=== PATIENT | male | born 1975 | race Hispanic/Latino ===

== ENCOUNTER → 2020-11-20 14:33 | Outpatient (CLI) | payer OTHER, SELFPAY ==
--- NOTE | ~2020-11-20 | XR_ITS ---
XR knee LT 3V 11/20/2020 14:56 INDICATION: Left knee pain PROCEDURE: 3 views left knee COMPARISON: No prior studies for comparison. FINDINGS: Fracture, dislocation or subluxation is not identified. No significant joint effusion. The soft tissues appear within normal limits. No foreign bodies are identified. IMPRESSION: 1: NO ACUTE BONE OR JOINT ABNORMALITY IDENTIFIED. Reviewed, dictated and finalized at location A. MING FREIGHT CLERK
== END ==
PROVIDERS: PCP Internal Medicine; Visit Provider Nurse Practitioner
DX: M25.562 Pain in left knee (principal)
CPT/HCPCS: 73562

== ENCOUNTER → 2020-11-26 07:06 | Outpatient (CLI) | payer OTHER, SELFPAY ==
--- NOTE | ~2020-11-26 | MR_ITS ---
EXAMINATION: MR knee LT wo con DATE: 11/26/2020 07:59 INDICATION: Left knee pain. TECHNIQUE: Magnetic resonance imaging (MRI) of the left knee was performed without intravenous contra st. Sequences included axial PD-weighted FS FSE, coronal PD-weighted FSE and PD-weighted FS FSE, sagi ttal PD-weighted FSE, and sagittal T2-weighted FS FSE. COMPARISON: Left knee radiographs 11/20/2020 FINDINGS: Medial compartment: Medial meniscus is normal. There is cartilage surface irregularity of femoral condyle and tibial cond yle. Lateral compartment: Lateral meniscus is normal. There is cartilage surface irregularity of tibial condyle. Femoral cartil age is normal. Patellofemoral compartment: There is cartilage surface irregularity of patellar medial facet. Trochlear cartilage is normal. Ligaments and tendons: Anterior and posterior cruciate ligaments are normal. There are changes of prior sprain of medial col lateral ligament characterized by increased signal proximally. Lateral collateral ligament complex is intact. There are complete tears of vastus medialis, vastus intermedius, and rectus femoris tendons. There is a partial tear of vastus lateralis tendon. There is mild patellar tendinopathy. Fluid: There is a moderate-sized knee joint effusion. There is trace fluid in a Joyce's cyst. There is subcu taneous edema in the anterior knee. There is hematoma at the site of the quadriceps tendon tear. Osseous/other: There is bone marrow edema in the lateral aspect of patella, consistent with stress reaction. IMPRESSION: 1. Quadriceps tendon tear including complete tears of vastus medialis, vastus intermedius, and rectus femoris tendons and partial tear of the vastus lateralis tendon. 2. Mild tricompartmental chondrosis. 3. Moderate-sized knee joint effusion. Reviewed, dictated and finalized at location A. ING ANALYST IMPRESSION: 1. Quadriceps tendon tear including complete tears of vastus medialis, vastus i ntermedius, and rectus femoris tendons and partial tear of the vastus lateralis tendon. 2. Mild tricompartmental chondrosis. 3. Moderate-sized knee joint effusion.
== END ==
PROVIDERS: PCP Internal Medicine; Visit Provider Nurse Practitioner
DX: M25.462 Effusion, left knee (principal)
CPT/HCPCS: 73721

== ENCOUNTER 2020-11-27 00:39 | Outpatient (CLI) | payer OTHER, SELFPAY ==
[2020-11-27 18:46] LABS: SARS-CoV-2 RNA PCR Negative
== END 2020-11-27 00:40 | disposition home or self-care (01) ==
LOC: ANHCOVIDDT 00:40
PROVIDERS: PCP Internal Medicine; Visit Provider Orthopaedic Surgery
DX: Z01.812 Encounter for preprocedural laboratory examination (principal); Z20.822 Contact with and (suspected) exposure to COVID-19
CPT/HCPCS: C9803; U0003; U0005

== ENCOUNTER 2020-11-30 02:43 | Day surgery (SDC) | payer OTHER, SELFPAY ==
[2020-11-26 13:59] VITALS: BMI 35.4
[2020-11-30] VITALS (9 sets, daily range): BP systolic 122–141; BP diastolic 74–89; PULSE 75–100; RESP 14–24; TEMP 36.3–36.4; O2SAT 96–100
--- NOTE | 2020-11-30 07:14 | WPDANESEPPF ---
Anes - Initial Pre Proc Eval Procedure: Operation Date: 11/30/20 08:30 Proposed Procedures p Left Quadriceps Tendon Repair - Michael Smith MD Date/Time: 11/30/20 07:14 Surgeon: Michael Smith MD Pre Op Diagnosis: Left Quadriceps Tendon Tear Patient Data Age: 45 Gender: M Height: 1.78 m Weight: 111.8 kg Last Vital Signs Temp 36.4 C 11/30/20 07:07 Pulse 98 11/30/20 07:07 Resp 16 11/30/20 07:07 BP 141/88 H 11/30/20 07:07 Pulse Ox 98 11/30/20 07:07 Allergies Allergy/AdvReac Type Severity Reaction Status Date / Time No Known Allergies Allergy Mild Verified 11/26/20 13:58 Home Medications Medication Instructions Recorded Confirmed Type testosterone enanthate 200 mg/mL 250 mg IM .COMPLEX ml 03/30/20 11/26/20 History intramuscular oil dextroamphetamine-amphetamine 20 20 mg PO TID #90 tablet 11/09/20 11/27/20 Rx mg tablet ibuprofen 1,000 mg PO TID PRN 11/26/20 11/27/20 History Patient hx anesthesia problems: none Family hx anesthesia problems: none [facility] Past Medical History Medical History (Updated 11/27/20 @ 10:04 by ROSANNE Hayes) Tachycardia Family History Family History Mother Patient's mother is in good health Father Patient's father is in good health Sibling Patient's sister is in good health Patient's brother is in good health Social History Social History Smoking status: Current some day smoker Tobacco type: cigars Additional smoking assessment comments: SMOKES < 1 CIGAR /WEEK X 4 YEARS Alcohol intake: never Alcohol use details: DRANK SOCIALLY IN PAST Substance use: never Living arrangements: with family Additional living arrangements comments: Additional occupation/education comments: [employer] Gender identity (if verbalized by the patient): Male Spiritual care concerns: No Anes - Eval Final PreProcedure Day of Procedure 11/30/20 07:14 Patient weight: obese Heart: regular rate and rhythm Lungs: clear to auscultation and normal air movement Airway: Mallampati scale class II Neurological: alert and oriented Last oral intake: >/= 8 hours ASA classification: III Emergent: no Anesthetic plan: proceed Anesthesia type and monitoring: general LMA and ETT Informed Consent: The patient's anesthetic plan and its attendant risks and benefits were discussed with the patient/family/POA. Questions were solicited and answers provided to the satisfaction of the patient/family/POA.
--- NOTE | 2020-11-30 07:18 | WPDHPUPDATE1 ---
History and Physical Update Update Date/Time: 11/30/20 07:18 History and Physical has been reviewed, including an updated exam of the patient. There are NO changes in the patient's condition. Risks, benefits, and alternatives have been discussed and questions answered. Patient agrees to proceed with procedure.
[2020-11-30] MEDS: ACETAMINOPHEN 500 MG TABLET 1000 MG PO (07:29)
[2020-11-30] MEDS: LACTATED RINGERS 1,000 ML 30 ML IV CONT ×2 (07:36→10:40)
[2020-11-30] MEDS: KETOROLAC 15 MG/ML VIAL (*BKC) IV PUSH (07:37)
[2020-11-30] MEDS: ceFAZolin 2 GM/D5W 50 ML 2 GM/50 ML BAG IVPB (07:57)
[2020-11-30] MEDS: BUPIVACAINE HCL 0.5% PF 30 ML VIAL 20 ML INFILTRATE (08:27)
--- NOTE | 2020-11-30 10:50 | P.OP_ITS ---
Procedure Note - Detailed Date of procedure: 11/30/20 Pre-op diagnosis: Left Quadriceps Tendon Tear Post-op diagnosis: same Procedure performed: Repair quadriceps tendon rupture. Description of procedure: The tear was in the intrasubstance of the tendon. Soft tissue repair tendon to tendon was indicated. Multiple FiberWire and Ethibond sutures were used with locking running sutures. The repair demonstrated significant tension between 45 and 60?. 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 Surgeon: Michael Smith MD Pan Reclaim Processor: Colleen Powers PA-C Estimated blood loss (mL): 50 Complications: No immediate complications Condition: stable Disposition: PACU Findings: Physician medical assistant instructor, Colleen Powers PA-C, required for surgery; including patient positioning, draping, tissue retraction, maintaining instrument position, wound closure, and dressing placement. Preoperative antibiotics were given. The patient was prepped and draped in the usual sterile fashion. A tourniquet was applied to the thigh but not inflated. A longitudinal incision was centered over the distal quadriceps and patella. The rupture was confirmed to be in the intrasubstance of the tendon. Significant tendinous material was left on the proximal patella. Tendon to bone repair was not advisable due to the required shortening. Tendon to tendon repair was accomplished with multiple FiberWire sutures were an in through the central tendon proximally and into the tendon stump distally. The central part of the tendon was repaired 1st this was a quite anatomic in appearance. Then the medial aspect of the tendon was repaired as it was somewhat more proximally torn. The split into the vastus medialis quite low was repaired with interr upted 0 Ethibond suture. The vastus lateralis was similarly repaired with#5 Ethibond and 0 Ethibond. The overlying retinaculum and fascial layers were repaired and reapproximated as able. The joint was not violated and the capsule was intact superiorly. Copious irrigation was used throughout the procedure. The subcutaneous tissues were closed with 2-0 Vicryl, 0 Quill, and 2-0 Quill. Steri-Strips were placed on the skin. A knee immobilizer was placed. Sterile bulky dressing with Dawson bandage placed 1st. Tension was found at 45? with knee flexion.
[2020-11-30] MEDS: fentaNYL CITRATE INJ (*CRX) 100 MCG/2 ML VIAL 25 MCG IV PUSH ×2 (11:05→11:11)
--- NOTE | 2020-11-30 11:37 | SUR.PHASEI ---
PT AWAKE AND ALERT. STATES PAIN MILD. READY TO SIT IN RECLINER.
[2020-11-30] MEDS: oxyCODONE HCL (*CRX) 5 MG TAB IR PO (12:25)
== END 2020-11-30 13:17 | disposition home or self-care (01) ==
PROVIDERS: PCP Internal Medicine; Visit Provider Orthopaedic Surgery
PROC: (CPT 27385; principal; 2020-11-30 08:30)
DX: S76.112A Strain of left quadriceps muscle, fascia and tendon, initial encounter (principal); R00.0 Tachycardia, unspecified; F17.210 Nicotine dependence, cigarettes, uncomplicated; E66.9 Obesity, unspecified; Z68.35 Body mass index [BMI] 35.0-35.9, adult
CPT/HCPCS: 27385; A9270; C9803; J0330; J0690; J1885; J2250; J2405; J2704; J3010; J7120; L1830; U0003; U0005

== ENCOUNTER 2023-12-27 08:03 | Emergency (ER) | payer OTHER, SELFPAY ==
--- NOTE | ~2023-12-27 | CT_ITS ---
EXAMINATION: CT femur LT w con DATE: 12/27/2023 09:35 INDICATION: Left lower limb injury. TECHNIQUE: Computed tomography (CT) of the left femur was performed with 100 mL Omnipaque 350 intrave nous contrast. Automated exposure control and iterative reconstruction technique were employed. The d ose-length product was 1231.57 mGy-cm. COMPARISON: Left knee radiographs 11/20/2020, knee MRI 11/26/2020 FINDINGS: Bone alignment is normal. No fracture. There is severe lower lumbar spondylosis. There is m ild osteoarthritis of left hip joint and left knee joint. There are changes of old distal quadriceps tendon tear status post healing or repair. There is heterotopic ossification in the distal quadriceps tendon. There is a small knee joint effusion. There is a small subcutaneous hematoma in posterolater al left thigh. IMPRESSION: 1. No acute fracture. 2. Old distal quadriceps tendon tear status post healing or repair. 3. Mild polyarticular osteoarthritis. 4. Mild knee joint osteoarthritis. 5. Small subcutaneous hematoma in posterolateral left thigh. Reviewed, dictated and finalized at location A. UTER NETWORKER
--- NOTE | ~2023-12-27 | CT_ITS ---
EXAMINATION: CT brain wo con DATE: 12/27/2023 09:31 INDICATION: Head injury. TECHNIQUE: Computed tomography (CT) of the head was performed without intravenous contrast. The mA wa s adjusted according to patient size. Iterative reconstruction technique was employed. The dose-lengt h product was 681.00 mGy-cm. COMPARISON: None FINDINGS: There is no intracranial hemorrhage, acute infarction, or abnormal intracranial mass lesion . The ventricles are normal in size. There is mucosal thickening in the paranasal sinuses. There are fractures of the nasal bones and nasal processes of maxilla. The mastoid air cells are normal. The or bits are normal. IMPRESSION: 1. Normal brain. 2. Fractures of the nasal bones and nasal processes of maxilla. Reviewed, dictated and finalized at location A. IN HOUSEKEEPER NANNY
--- NOTE | ~2023-12-27 | CT_ITS ---
EXAMINATION: CT facial & cervical spine wo DATE: 12/27/2023 09:32 INDICATION: Trauma TECHNIQUE: Computed tomography (CT) of the facial bones and maxillofacial region and cervical spine w as performed without intravenous contrast. Automated exposure control and iterative reconstruction te chnique were employed. Exam dose: 553.01 mGy-cm total exam DLP. COMPARISON: None. FINDINGS: Bilateral nasal plate fractures. The frontozygomatic sutures, orbital rims and sidhu, zygomatic arches, pterygoid plates and remainder of the facial bones are intact, without fracture. No mandibular fracture or temporomandibular joint dislocation. Mild periapical lucency at the most posterior right mandibular molar, likely a small periapical absce ss. There is minimal mucoperiosteal thickening of the frontal sinuses and prominent patchy soft tissue th ickening of the ethmoid air cells. There is moderate nodular mucoperiosteal thickening of the lower r ight maxillary sinus primarily and mild mucoperiosteal thickening involving primarily the lower left maxillary sinus. There is mild mucosal periosteal thickening of the sphenoid sinuses. The mastoid air cells are well pneumatized and clear. There is straightening of the cervical spine which may be due to positioning or muscle spasm. Moderate degenerative disc disease at C5-6 and severe degenerative disc disease at C6-7. Prominent un covertebral joint spurring at C6-7 bilaterally. No fracture or dislocation or locked facet or prevertebral soft tissue swelling. C1 and C2 are normal ly aligned and the odontoid process is intact. There is degenerative change at the left C2-3 apophyse al joint primarily. IMPRESSION: Bilateral nasal plate fractures; no other facial fracture Mild paranasal sinus disease Straightening of the cervical spine which may be due to muscle spasm Moderate cervical spondylosis; no fracture or dislocation or locked facet Reviewed, dictated and finalized at Location A. Reviewed, dictated and finalized at location B. ATION PROGRAM SPECIALIST
[2023-12-27 08:12] VITALS: BP 152/94; PULSE 113; RESP 20; TEMP 36.8; O2SAT 97
[2023-12-27 08:25] VITALS: BP 150/102; PULSE 114; RESP 18; O2SAT 98
[2023-12-27] MEDS: SODIUM CHLORIDE 0.9% IV 1,000 ML 999 ML IV CONT (08:42)
[2023-12-27 08:48] LABS: Basophils Absolute Auto 0.1 K/mm3 (0.0-0.1); Basophils Percent Auto 1.6 % (0.2-1.2); Eosinophils Absolute Auto 0.4 K/mm3 (0-0.3); Hematocrit 55.6 % (42.0-52.0); Hemoglobin 17.5 g/dL (14.0-18.0); Immature Granulocyte Absolute 0.02 K/mm3 (0.00-0.031); Immature Granulocyte Percent A 0.3 % (0-0.5); Lymphocytes Absolute Auto 1.28 K/mm3 (0.9-3.2); Lymphocytes Percent Auto 20.8 % (18.3-44.2); Mean Corpuscular HGB Conc 31.5 g/dl (32-36); Mean Corpuscular Hemoglobin 27.3 pg (26-34); Mean Corpuscular Volume 86.9 fl (80-100); Mean Platelet Volume 9.5 fl (7.4-10.4); Monocytes Absolute Auto 0.6 K/mm3 (0.1-0.6); Monocytes Percent Auto 10.4 % (2.6-8.5); Neutrophils Absolute Auto 3.7 K/mm3 (1.3-6.7); Neutrophils Percent Auto 60.9 % (45.5-73.1); Platelet Count Result 290 k/mm3 (150-375); White Blood Count 6.1 K/mm3 (4.5-10.0)
[2023-12-27 08:58] LABS: Alanine Aminotransferase 51 U/L (6-50); Albumin Level 4.3 g/dL (3.5-5.1); Alkaline Phosphatase 79 U/L (38-126); Anion Gap 4 mmol/L (8-16); Aspartate Amino Transferase 46 U/L (17-59); Bilirubin,Total 0.6 mg/dL (0.2-1.3); Blood Urea Nitrogen 19 mg/dL (9-20); Calcium 8.9 mg/dL (8.4-10.2); Carbon Dioxide 28 mmol/L (22-30); Chloride 106 mmol/L (98-107); Estimated CRCL calculation 86 ml/min; Estimated Glomerular Filt Rate > 60; Glucose 101 mg/dL (65-110); Lipase 114 U/L (23-300); Potassium 4.1 mmol/L (3.4-5.0); Sodium 138 mmol/L (137-145)
[2023-12-27 09:05] LABS: INR 0.9; Prothrombin Time 12.6 Seconds (11.1-14.7)
[2023-12-27 09:06] LABS: Partial Thromboplastin Time 25.5 SECONDS (22.3-36.8)
[2023-12-27 09:56] VITALS: BP 159/94; PULSE 106; RESP 20; O2SAT 99
--- NOTE | 2023-12-27 10:32 | PC.NURSE ---
C Collar removed from pt per EDP Dr Zia MOCTEZUMA following negative imaging. Dawson wrap applied to left upper thigh per RHIANNA EDP Dr Lizarraga. Ice pack given, elevated limp. Distal pulse WNL.
--- NOTE | 2023-12-27 11:12 | PC.NURSE ---
assumed care of pt. pt resting on stretcher. ice pack placed to left hip/thigh for comfort. pt updated that we are awaiting edp to review results. no distress, no concerns at this time
--- NOTE | 2023-12-27 12:24 | ED.GENADULT ---
HPI - General Adult General Chief complaint: Fall Stated complaint: facial injury Time Seen by Provider: 12/27/23 08:08 History of Present Illness HPI narrative: Patient is a 48-year-old male who presents the ER status post falling from a ladder 12 ft up. He got his left leg caught in a wrong on his way down. He then struck his head on the ground. He has pain to his nose in laceration to the right infraorbital area. Patient's tetanus shot is up-to-date. He did not lose consciousness. He was able to ambulate in here. He has some pain to the left thigh and some swelling. He is concerned as he has had a ruptured quad tendon in the past. Patient is on no blood thinners. Related Data Home Medications Medication Instructions Recorded Confirmed testosterone enanthate 200 mg/mL 250 mg IM .COMPLEX 03/30/20 11/03/23 intramuscular oil Allergies Allergy/AdvReac Type Severity Reaction Status Date / Time No Known Allergies Allergy Mild Verified 12/27/23 08:26 Review of Systems Review of Systems: All systems reviewed & are unremarkable except as noted in HPI and below Constitutional: Constitutional: Reports no additional constitutional complaints Eyes: Eyes: Reports no additional eye complaints ENT: Denies dizziness, Denies nasal congestion and Denies sore throat Comments: Nasal pain Cardiovascular: Cardiovascular: Reports no additional cardiovascular complaints Respiratory: Respiratory: Reports no additional respiratory complaints Gastrointestinal: Gastrointestinal: Reports no additional gastrointestinal complaints Genitourinary: Genitourinary: Reports no additional male genitourinary complaints [facility] Past Medical History Medical History Attention deficit hyperactivity disorder, predominantly inattentive type Dyslipidemia Knee pain, left Quadriceps tendon rupture Tachycardia Testicular hypofunction Surgical History Surgical History History of surgery (~11/30/19) quadriceps tendon repair Lt Family History Family History Mother Patient's mother is in good health Father Patient's father is in good health Sibling Patient's sister is in good health Patient's brother is in good health Social History Social History Smoking status: Never smoker Second hand tobacco smoke exposure: No Alcohol intake: current Alcohol use details: occasionally Substance use: never Substance use type: does not use Living arrangements: with family Additional living arrangements comments: Occupation/Education: occupation Additional occupation/education comments: [employer] Gender identity (if verbalized by the patient): Male Sexual Orientation (if Verbalized by the Patient): Straight or Heterosexual Spiritual care concerns: No Exam Narrative: GENERAL: Well-appearing, well-nourished, and in no acute distress. HEAD: Normocephalic, atraumatic. EYES: PERRL and EOMI. ENT: Mucous membranes moist. swelling bridge of the nose with tenderness. Infraorbital region with a 1 cm flap laceration. NECK: Supple. No midline tenderness of the C-spine. CHEST: Clear to auscultation. No respiratory distress. No chest wall bruising. No crepitus palpated. HEART: Regular rate and rhythm. Normal peripheral pulses. ABDOMEN: Soft, nontender, nondistended. No abdominal wall bruising. EXTREMITIES: Normal range of motion. No edema. Swelling of the left quad laterally just proximal to the knee without fluctuance or bruising. SKIN: Warm, dry, no rash. Patient fully exposed and no obvious bruises or lacerations outside of the laceration to the right infraorbital region. NEURO: No focal deficits. Alert and oriented x3. PSYCH: Normal mood and affect. Course Course Emergency Course: Mckayla
[2023-12-27 12:53] VITALS: BP 128/86; PULSE 86; RESP 14; O2SAT 99
== END 2023-12-27 12:54 | disposition home or self-care (01) ==
PROVIDERS: Emergency Provider Emergency Medicine; PCP Family Medicine
DX: S01.21XA Laceration without foreign body of nose, initial encounter (principal); S02.2XXA Fracture of nasal bones, initial encounter for closed fracture; S70.12XA Contusion of left thigh, initial encounter; W11.XXXA Fall on and from ladder, initial encounter; M19.90 Unspecified osteoarthritis, unspecified site
CPT/HCPCS: 12011; 36415; 70450; 70486; 72125; 73701; 80053; 83690; 85025; 85610; 85730; 96360; 99284; J2270; J7030; Q9967

== ENCOUNTER 2024-01-04 11:44 | Emergency (ER) | payer OTHER, SELFPAY ==
[2024-01-04 11:47] VITALS: BP 145/80; PULSE 106; RESP 20; TEMP 36.5; O2SAT 99
--- NOTE | 2024-01-04 12:20 | ED.GENADULT ---
[facility] - General Adult General Chief complaint: Extremity Problem,Nontraumatic Stated complaint: swelling to left thigh Time Seen by Provider: 01/04/24 11:57 Source: patient Mode of arrival: ambulatory Limitations: no limitations History of Present Illness HPI narrative: This is a 48-year-old male who presents to the ED with chief complaint of left lateral thigh pain for the past several days. Patient was seen here about a week ago for traumatic injury in which he fell off of a 12 ft ladder. His workup was positive for a open nasal bone fracture as well as a small left posterolateral thigh hematoma. Patient reports that since the nose has been healing he has become more aware of the pain in his left thigh and wanted to get it checked out. Reports a little bit of warmth, continued bruising and pain but does not feel that the pain is worsened or he has any worsening swelling. States he has not been using his ice or ibuprofen either. Related Data Home Medications Medication Instructions Recorded Confirmed testosterone enanthate 200 mg/mL 250 mg IM .COMPLEX 03/30/20 01/01/24 intramuscular oil Allergies Allergy/AdvReac Type Severity Reaction Status Date / Time No Known Allergies Allergy Mild Verified 01/04/24 11:45 Review of Systems Review of Systems: All systems as dictated in [facility] Past Medical History Medical History Attention deficit hyperactivity disorder, predominantly inattentive type Dyslipidemia Knee pain, left Quadriceps tendon rupture Tachycardia Testicular hypofunction Surgical History Surgical History History of surgery (~11/30/19) quadriceps tendon repair Lt Family History Family History Mother Patient's mother is in good health Father Patient's father is in good health Sibling Patient's sister is in good health Patient's brother is in good health Social History Social History Smoking status: Never smoker Second hand tobacco smoke exposure: No Alcohol intake: current Alcohol use details: occasionally Substance use: never Substance use type: does not use Living arrangements: with family Additional living arrangements comments: Occupation/Education: occupation Additional occupation/education comments: [employer] Gender identity (if verbalized by the patient): Male Sexual Orientation (if Verbalized by the Patient): Straight or Heterosexual Spiritual care concerns: No Exam Narrative: GENERAL: Well-appearing, well-nourished, and in no acute distress. HEAD: Normocephalic, atraumatic. EYES: PERRLA and EOMI. ENT: Nares clear, no rhinorrhea or epistaxis. Mucous membranes moist. Oropharynx without tonsillar hypertrophy exudate or other lesions. NECK: Supple. No adenopathy or masses. CHEST: No respiratory distress. Clear to auscultation. No wheezes rales or rhonchi HEART: Regular rate and rhythm. No murmur heard. Normal peripheral pulses. ABDOMEN: Soft, nontender, nondistended, normal active bowel sounds. MSK: Ambulatory without difficulty. Left lower extremity with mild tenderness to the lateral thigh but neurovascularly intact distally. No calf edema. No erythema Right lower extremity benign Normal range of motion. No edema. SKIN: Warm, dry, no rash. Significant ecchymosis to the lateral left thigh. Minimal warmth. No erythema NEURO: Alert and oriented x3. No focal deficits. PSYCH: Normal mood and affect. Course Vital Signs Vital signs: Vital Signs Temperature 97.7 F 01/04/24 11:47 Pulse Rate 106 H 01/04/24 11:47 Respiratory Rate 20 01/04/24 11:47 Blood Pressure 145/80 H 01/04/24 11:47 Pulse Oximetry 99 01/04/24 11:47 Oxygen Delivery Room Air 01/04/24 11:47 Temperature 97.7 F
[2024-01-04 13:04] VITALS: BP 132/95; PULSE 96; RESP 16; TEMP 36.6; O2SAT 98
== END 2024-01-04 13:06 | disposition home or self-care (01) ==
PROVIDERS: Emergency Provider Physician Assistant; PCP Family Medicine
DX: M79.652 Pain in left thigh (principal); E78.5 Hyperlipidemia, unspecified; E29.1 Testicular hypofunction; F90.0 Attention-deficit hyperactivity disorder, predominantly inattentive type
CPT/HCPCS: 99281

== ENCOUNTER 2024-03-31 15:24 | Emergency (ER) | payer OTHER, SELFPAY ==
[2024-03-31 15:41] VITALS: BP 134/82; PULSE 95; RESP 16; TEMP 37.1; O2SAT 98
--- NOTE | 2024-03-31 16:30 | ED.URI ---
HPI - URI/Sore Throat General Chief Complaint: Upper Respiratory Infection Stated Complaint: feeling sluggish,chest congestion Time Seen by Provider: 03/31/24 16:30 Source: patient Mode of arrival: ambulatory Limitations: no limitations History of Present Illness HPI Narrative: 48-year-old male presents with complaint of chest congestion, coughing, fatigue, body aches for 2-3 days. Afebrile. No shortness of breath. Reports chest pain with coughing. Not taking any [id number] medications to treat his symptoms. States that he has a sore throat only in the mornings. Patient's son diagnosed with strep throat 2 days ago. All systems reviewed and negative except as noted above. Related Data Allergies Allergy/AdvReac Type Severity Reaction Status Date / Time No Known Allergies Allergy Mild Verified 03/31/24 15:38 Review of Systems Review of Systems: CONSTITUTIONAL: Denies fever, chills, or sweats. EYES: Denies visual changes, redness, or discharge. ENT: Denies rhinorrhea, congestion. Reports sore throat. Denies otalgia. CARDIOVASCULAR: Denies chest pain, palpitations, or edema. RESPIRATORY: Reports cough, chest congestion, chest pain with coughing. Denies dyspnea. GASTROINTESTINAL: Denies abdominal pain, nausea, vomiting, or diarrhea. GENITOURINARY: Denies dysuria or hematuria. SKIN: Denies rash or itching. MUSCULOSKELETAL: Denies back pain, joint pain, or myalgia. NEUROLOGIC: Denies headache, numbness, or weakness. PSYCHIATRIC: Denies anxiety or depression. All other systems reviewed are negative, except as documented in HPI. [facility] Past Medical History Medical History Attention deficit hyperactivity disorder, predominantly inattentive type Dyslipidemia Knee pain, left Quadriceps tendon rupture Tachycardia Testicular hypofunction Surgical History Surgical History History of surgery (~11/30/19) quadriceps tendon repair Lt Family History Family History Mother Patient's mother is in good health Father Patient's father is in good health Sibling Patient's sister is in good health Patient's brother is in good health Social History Social History Smoking status: Never smoker Second hand tobacco smoke exposure: No Alcohol intake: current Alcohol use details: occasionally Substance use: never Substance use type: does not use Living arrangements: with family Additional living arrangements comments: Occupation/Education: occupation Additional occupation/education comments: [employer] Gender identity (if verbalized by the patient): Male Sexual Orientation (if Verbalized by the Patient): Straight or Heterosexual Spiritual care concerns: No Comments At time of signature, agree with nursing past medical, surgical, social and family history. There is no relevant family history pertinent to the presenting complaint. Exam Narrative: GENERAL: This is a well-nourished, well-developed patient, in no apparent distress. HEAD: normocephalic, atraumatic. EYES: PERRL. Sclera clear/white. Vision is grossly intact. EARS: External ears normal, auditory canals clear and without drainage, TMs normal without perforation. Hearing grossly intact. NOSE: External nose normal with Clear nasal drainage, mild erythema to nares without swelling. THROAT: Mucous membranes moist, Mild erythema and swelling with postnasal drainage. No exudates. NECK: Neck supple, non-tender without lymphadenopathy, masses or thyromegaly. CARDIOVASCULAR: Regular rate and rhythm without murmurs, gallops, or rubs. RESPIRATORY: Clear to auscultation. Breath sounds equal bilaterally. No wheezes, rales, or rhonchi. SKIN: warm, Dry, intact with no suspicious lesions or rash, good texture and
== END 2024-03-31 16:30 | disposition home or self-care (01) ==
PROVIDERS: Emergency Provider Nurse Practitioner Family; PCP Family Medicine
DX: J06.9 Acute upper respiratory infection, unspecified (principal); R05.9 Cough, unspecified; Z20.818 Contact with and (suspected) exposure to other bacterial communicable diseases; Z20.822 Contact with and (suspected) exposure to COVID-19; E78.5 Hyperlipidemia, unspecified; F90.9 Attention-deficit hyperactivity disorder, unspecified type
CPT/HCPCS: 87426; 87804; 99213; G0463

== ENCOUNTER 2024-05-27 23:07 | Emergency (ER) | payer OTHER, SELFPAY ==
[2024-05-27 23:15] VITALS: BP 85/55; PULSE 116; RESP 16; TEMP 36.6; O2SAT 99
[2024-05-27 23:16] VITALS: BP 86/43
[2024-05-27 23:20] VITALS: BP 91/42
[2024-05-27 23:28] VITALS: BP 98/52
[2024-05-27 23:34] LABS: Basophils Absolute Auto 0.2 K/mm3 (0.0-0.1); Basophils Percent Auto 0.7 % (0.2-1.2); Eosinophils Percent Auto 0.1 % (0-4.4); Hematocrit 47.2 % (42.0-52.0); Hemoglobin 15.3 g/dL (14.0-18.0); Immature Granulocyte Absolute 0.13 K/mm3 (0.00-0.031); Immature Granulocyte Percent A 0.6 % (0-0.5); Lymphocytes Absolute Auto 0.42 K/mm3 (0.9-3.2); Lymphocytes Percent Auto 1.8 % (18.3-44.2); Mean Corpuscular HGB Conc 32.4 g/dl (32-36); Mean Corpuscular Hemoglobin 27.3 pg (26-34); Mean Corpuscular Volume 84.1 fl (80-100); Monocytes Percent Auto 4.2 % (2.6-8.5); Neutrophils Absolute Auto 21.3 K/mm3 (1.3-6.7); Neutrophils Percent Auto 92.6 % (45.5-73.1); Platelet Count Result 206 k/mm3 (150-375); Red Blood Count 5.61 M/mm3 (4.6-6.20); Red Cell Distribution Width 15.9 % (11.5-14.5)
[2024-05-27 23:45] LABS: Alanine Aminotransferase 65 U/L (6-50); Albumin Level 4.1 g/dL (3.5-5.1); Alkaline Phosphatase 68 U/L (38-126); Anion Gap 10 mmol/L (4-12); Aspartate Amino Transferase 52 U/L (17-59); Bilirubin,Total 1.1 mg/dL (0.2-1.3); Blood Urea Nitrogen 30 mg/dL (9-20); Calcium 7.8 mg/dL (8.4-10.2); Carbon Dioxide 24 mmol/L (22-30); Chloride 99 mmol/L (98-107); Estimated CRCL calculation 59 ml/min; Estimated Glomerular Filt Rate 41; Glucose 96 mg/dL (65-110); Potassium 4.5 mmol/L (3.4-5.0); Sodium 133 mmol/L (137-145)
--- NOTE | 2024-05-28 01:09 | PC.NURSE ---
Patient ambulates to the triage desk and states he is going to leave because he has an appointment with his physician in eight hours. Patient educated on possible outcomes including deterioration in condition/; verbalizes understanding. Patient's IV removed and patient ambulates out of the waiting room in no apparent distress.
== END 2024-05-28 01:09 | disposition left against medical advice (07) ==
PROVIDERS: Emergency Provider Emergency Medicine; PCP Family Medicine
DX: M54.50 Low back pain, unspecified (principal)
CPT/HCPCS: 36415; 80053; 85025; 99199

== ENCOUNTER 2025-02-05 19:03 | Emergency (ER) | payer OTHER, SELFPAY ==
--- NOTE | ~2025-02-05 | CT_ITS ---
CT abdomen pelvis w con Ordering provider: Azeb Nunez History: 49 years Male with . epigstric, RLQ and RUQ abd pain . Comparison: December 27, 2023 Technique: CT abdomen and pelvis with IV and without oral contrast. Automated exposure control and it erative reconstruction technique were employed. The dose-length product was 1293.35 mGy-cm. 100 mL Om nipaque 350 was given IV. Findings: VISUALIZED LOWER CHEST: Slight thickening of the oblique fissure on the right side most likely due to minimal fluid. UPPER ABDOMINAL ORGANS: Liver: Normal. Gallbladder: Contracted. Spleen: Normal. Stomach/duodenum: Normal. Pancreas: Normal. Adrenals: Normal. Kidneys: Normal. PELVIC ORGANS: The bladder is normal. Prostatic calcifications. BOWEL AND MESENTERY: Colon: No evidence of diverticulitis. The appendix appears to be slightly thickened measuring 8 mm or may be the tip is folded on the body of the appendix with possible minimal fat stranding which may indicate appendicitis. Clinical correla tion advised. Small Bowel: Normal. No obstruction. Peritoneum/mesentery: No free air or free fluid. No mesenteric lymphadenopathy. RETROPERITONEUM: Normal aorta. No retroperitoneal lymphadenopathy. MUSCULOSKELETAL: Superficial soft tissues: Small fat-containing umbilical hernia. The superficial soft tissues are nor mal. Bones: Age appropriate degenerative changes of the spine. IMPRESSION: 1. Possible appendicitis. Clinical correlation and follow-up advised. 2. No evidence of diverticulitis or intestinal obstruction. No renal stones. Indication Reviewed, dictated and finalized at location A. IMPRESSION: 1. Possible appendicitis. Clinical correlation and follow-up advised. 2. No evidence of diverticulitis or intestinal obstruction. No renal stones. I ndication
--- OUTSIDE RECORDS SUMMARY | 2025-02-05 19:06 | XMS_ITS | Clinical Summary ---
Author Organization [facility] Address [id number] [place] [address] [place] [address] Care Team Providers Care Sludge Control Attendant Name Role Phone Unavailable Primary Care Provider Unavailabl e Allergies No known active allergies Medications amphetamine-dext roamphetamine (ADDERALL XR) 20 mg Extended Release 24 hour capsule Take 20 mg by mouth 3 times daily. Active Active Problems No known active problems Social History Tobacco Use Types Packs/Day Years Used Date Smoking Tobacco: Never Alcohol Use Standard Drinks/Week Comments Yes 0 (1 standard drink = 0.6 oz pur e alcohol) Sex and Gender Information Value Date Recorded Sex Assigned at Not on file Legal Sex Male 6:17 PM CDT Gender Identity Not on file Sexual Orientation Not on file Last Filed Vital Signs Vital Sign Reading Time Taken Comments Blood Pressure 129/87 06/30/2021 6:33 PM CDT Pulse 103 06/30/2021 6:33 PM CDT Temperature 37.1 C (98.7 F) 06/30/2021 6:33 PM CDT Respiratory Rate - - Oxygen Saturation 98% 06/30/2021 6:33 PM CDT Inhaled Oxygen Concentration - - Weight 104.3 kg (230 lb) 06/30/2021 6:33 PM CDT Height 177.8 cm (5' 10 ) 06/30/2021 6:33 PM CDT Body Mass Index 33 06/30/2021 6:33 PM CDT Plan of Treatment Health Maintenance Due Date Last Done Comments DTAP/TDAP/TD VACCINES (1 - Tdap) 1996 HEPATITIS B VACCINES (1 of 3 - 19+ 3-dose series) 1996 COLORECTAL SCREENING 2022 Colorectal Cancer Screening 2022 FIT-DNA Q 3 years 2022 FIT/FOBT Q 1 year 2022 Flex Sig/CT Colonography Q 5 years 2022 INFLUENZA VACCINE (#1) 2024 PNEUMOCOCCAL VACCINE 0-49 YEARS Aged Out No longer eligible based on patient's age to complete this topic Insurance
[2025-02-05 19:10] VITALS: BP 148/88; PULSE 100; RESP 15; TEMP 36.4; O2SAT 100
--- NOTE | 2025-02-05 20:08 | ECG_ITS ---
Test Date: 2025-02-05 23:40:58 Measurements Intervals [place] Rate: 90 P: 62 ME: 142 QRS: 42 QRSD: 105 T: 62 QT: 344 QTc: 423 Interpretive Statements SINUS RHYTHM NONSPECIFIC T-WAVE ABNORMALITY No previous ECG available for comparison Electronically Signed On 02-06-2025 11:44:17 CDT by Arun Bhakta M.D.
--- NOTE | 2025-02-05 20:08 | ED.ABDPAIN ---
HPI - Abdominal Pain General Chief Complaint: Abdominal Pain Stated Complaint: Upper abd pain x 2 days Time Seen by Provider: 02/05/25 19:58 History of Present Illness HPI narrative: 49-year-old male with history of dyslipidemia presents to the emergency department for upper abdominal pain for the past 2 days. Patient states the pain woke up out of his sleep 2 days ago. He notes the pain is diffusely throughout the upper abdomen mostly on the right side. He notes that the pain is better when he belches or has flatulence but then immediately returns. He has had no prior abdominal surgeries. Denies dysuria or hematuria, N/V/D. Last bowel movement was prior to arrival and normal. Denies chest pain or shortness of breath. Denies history of PUD or need for prior EGD, melena or hematochezia. Reports occasional ETOH use. Related Data Allergies Allergy/AdvReac Type Severity Reaction Status Date / Time No Known Allergies Allergy Mild Verified 02/05/25 19:05 Review of Systems Review of Systems: All systems reviewed & are unremarkable except as noted in HPI and below PMFSH Past Medical History Medical History Quadriceps tendon rupture Knee pain, left Tachycardia Attention deficit hyperactivity disorder, predominantly inattentive type Dyslipidemia Testicular hypofunction Surgical History Surgical History History of surgery (~11/30/19) quadriceps tendon repair Lt Family History Family History Mother Patient's mother is in good health Father Patient's father is in good health Sibling Patient's sister is in good health Patient's brother is in good health Social History Social History Smoking status: Never smoker Second hand tobacco smoke exposure: No Alcohol intake: current Alcohol use details: occasionally Substance use: never Substance use type: does not use Living arrangements: with family Additional living arrangements comments: Occupation/Education: occupation Additional occupation/education comments: [employer] Gender identity (if verbalized by the patient): Male Sexual Orientation (if Verbalized by the Patient): Straight or Heterosexual Spiritual care concerns: No Exam Narrative: GENERAL: Well-appearing, well-nourished, and in no acute distress. HEAD: Normocephalic, atraumatic. EYES: EOMI. ENT: Nares clear, no rhinorrhea or epistaxis. Mucous membranes moist. NECK: Supple. CHEST: Clear to auscultation. No respiratory distress. HEART: Regular rate and rhythm. No murmur heard. Normal peripheral pulses. ABDOMEN: Normoactive bowel sounds. Abdomen soft with mild tenderness epigastrium, tenderness to the right of the periumbilical region. No rebound or rigidity. No CVA tenderness. Negative Bro's sign, no significant tenderness to McBurney's point EXTREMITIES: Normal range of motion. No edema. SKIN: Warm, dry, no rash. NEURO: No focal deficits. Alert and oriented x3 Course Vital Signs Vital signs: Vital Signs Temperature 97.6 F 02/05/25 19:10 Pulse Rate 100 02/05/25 19:10 Respiratory Rate 15 02/05/25 19:10 Blood Pressure 148/88 H 02/05/25 19:10 Pulse Oximetry 100 02/05/25 19:10 Temperature 97.6 F 02/05/25 19:10 Pulse Rate 97 02/05/25 20:11 Respiratory Rate 16 02/05/25 20:11 Blood Pressure 144/94 H 02/05/25 20:11 Pulse Oximetry 99 02/05/25 20:11 MDM - Abdominal Pain MDM Narrative Medical decision making narrative: 49-year-old male presents to the emergency department for abdominal pain for the past 2 days. See HPI for further history. Vitals are stable. Patient is afebrile and nontoxic. Resting comfortably in the exam bed. Exam is notable for tenderness to the epigastrium and right of the periumbilical region. No remarkable right upper quadrant tenderness, negative Bro's. No remarkable tenderness over McBurney's point. CBC without leukocytosis. Chemistries with creatinine of 1.79, most recent creatinine in May 2024 was elevated 1.8. Patient was given fluids. ALT also elevated to 63 which appears chronic. Lipase within normal limits. Remainder of LFTs are unremarkable. EKG Patient was updated on results. On re-evaluation he is no significant tenderness to the right lower quadrant but does have mild tenderness just right of the umbilicus. I advised admission for observation for possible developing appendicitis, however patient states he would like to go home. I did discuss results and patient's wishes with surgeon, Dr. Motley, who feels it is reasonable for the patient to be discharged home with strict ED return precautions given I do feel patient is reliable, he has no leukocytosis and is afebrile. He does advise against antibiotics at this time and will otherwise see the patient in clinic if he does not return to the emergency department for new or worsening symptoms. I discussed strict ED return precautions and risks of undiagnosed appendicitis with the patient including sepsis, complications such as perforation and abscess and . Patient verbalizes understanding of these risks and agrees to return to the emergency department if he develops any new or worsening symptoms. All questions answered. Discharged in stable condition. Lab Data 02/05/25 20:07 02/05/25 20:07 Labs: Lab Results 02/05/25 02/05/25 02/05/25 Range/Units 20:07 20:14 23:27 WBC 7.0 (4.5-10.0) K/mm3 RBC 6.34 H (4.6-6.20) M/mm3 Hgb 17.4 (14.0-18.0) g/dL Hct 54.1 H (42.0-52.0) % MCV 85.3 (80-100) fl MCH 27.4 (26-34) pg MCHC 32.2 (32-36) g/dl RDW 16.6 H (11.5-14.5) % Plt Count 252 (150-375) k/mm3 MPV 9.3 (7.4-10.4) fl Immature Gran % (Auto) 0.6 H (0-0.5) % Neut % (Auto) 64.4 (45.5-73.1) % Lymph % (Auto) 16.8 L (18.3-44.2) % Cecil % (Auto) 13.1 H (2.6-8.5) % Eos % (Auto) 4.0 (0-4.4) % Baso % (Auto) 1.1 (0.2-1.2) % Lymph # (Auto) 1.17 (0.9-3.2) K/mm3 Cecil # (Auto) 0.9 H (0.1-0.6) K/mm3 Eos # (Auto) 0.3 (0-0.3) K/mm3 Baso # (Auto) 0.1 (0.0-0.1) K/mm3 Abs Immat Gran (auto) 0.04 H (0.00-0.031) K/mm3 Absolute Neuts (auto) 4.5 (1.3-6.7) K/mm3 Absolute Nucleated RBC 0.000 (0.0-0.012) K/mm3 Nucleated RBC % 0.0 (0.0-0.2) % Sodium 138 (137-145) mmol/L Potassium 4.0 (3.4-5.0) mmol/L Chloride 101 (98-107) mmol/L Carbon Dioxide 28 (22-30) mmol/L Anion Gap 9 (4-12) mmol/L BUN 11 D (9-20) mg/dL Creatinine 1.79 H (0.7-1.3) mg/dL Estim Creat Clear Calc 58 ml/min Estimated GFR 41 L (59 - ) Glucose 96 (65-110) mg/dL Calcium 8.8 (8.4-10.2) mg/dL Total Bilirubin 0.3 (0.2-1.3) mg/dL AST 45 (17-59) U/L ALT 63 H (6-50) U/L Alkaline Phosphatase 65 (38-126) U/L Troponin I < 0.012 (0.000-0.034) ng/mL Total Protein 7.0 (6.3-8.2) g/dL Albumin 3.9 (3.5-5.1) g/dL Lipase 87 (23-300) U/L Urine Color Pending Urine Appearance Pending Urine pH Pending Ur Specific [place] Pending Urine Protein Pending Urine Glucose (UA) Pending Urine Ketones Pending Ur Blood (Man) Pending Urine Nitrate Pending Urine Bilirubin Pending Urine Urobilinogen Pending Leukocyte Esterase Rfl Pending Imaging Data Radiologist's impression: ITS Impressions Abdomen/Pelvis CT 02/05/25 22:14 IMPRESSION: 1. Possible appendicitis. Clinical correlation and follow-up advised. 2. No evidence of diverticulitis or intestinal obstruction. No renal stones. Indication Discharge Plan Discharge Clinical Impression: Abdominal pain Qualifiers: Abdominal location: periumbilical Qualified Code(s): R10.33 - Periumbilical pain Patient Disposition: Home, Self-Care Condition: Stable Instructions: Antibiotic Form, Abdominal Pain (ED) Additional Instructions: Your evaluated in the emergency department for abdominal pain. Your CT scan shows possible appendicitis. We discussed admission for observation, however your requesting to go home. Please follow-up closely with the general surgeon. If you develop changing or worsening abdominal pain, fever, vomiting or other concerning symptoms, return to the emergency department immediately. Patient Language: [place] Island[place] Prescriptions: No Action amoxicillin-pot clavulanate 875-125 mg tablet 1 tablet PO BID Qty: 14 0RF prednisone 20 mg tablet 40 mg PO DAILY Qty: 10 0RF dextroamphetamine-amphetamine [Adderall] 20 mg tablet 20 mg PO TID Qty: 90 0RF Rx Instructions: administer doses at least 4-6 hours apart Follow-up/Referrals: Arturo Alexander MD [Primary Care Provider] - López Motley MD [Physician] -
[2025-02-05 20:11] VITALS: BP 144/94; PULSE 97; RESP 16; O2SAT 99
[2025-02-05 20:19] LABS: Basophils Absolute Auto 0.1 K/mm3 (0.0-0.1); Basophils Percent Auto 1.1 % (0.2-1.2); Eosinophils Absolute Auto 0.3 K/mm3 (0-0.3); Hematocrit 54.1 % (42.0-52.0); Hemoglobin 17.4 g/dL (14.0-18.0); Immature Granulocyte Absolute 0.04 K/mm3 (0.00-0.031); Immature Granulocyte Percent A 0.6 % (0-0.5); Lymphocytes Absolute Auto 1.17 K/mm3 (0.9-3.2); Lymphocytes Percent Auto 16.8 % (18.3-44.2); Mean Corpuscular HGB Conc 32.2 g/dl (32-36); Mean Corpuscular Hemoglobin 27.4 pg (26-34); Mean Corpuscular Volume 85.3 fl (80-100); Mean Platelet Volume 9.3 fl (7.4-10.4); Monocytes Absolute Auto 0.9 K/mm3 (0.1-0.6); Monocytes Percent Auto 13.1 % (2.6-8.5); Neutrophils Absolute Auto 4.5 K/mm3 (1.3-6.7); Neutrophils Percent Auto 64.4 % (45.5-73.1); Platelet Count Result 252 k/mm3 (150-375); Red Blood Count 6.34 M/mm3 (4.6-6.20); Red Cell Distribution Width 16.6 % (11.5-14.5)
[2025-02-05 20:29] LABS: Alanine Aminotransferase 63 U/L (6-50); Albumin Level 3.9 g/dL (3.5-5.1); Alkaline Phosphatase 65 U/L (38-126); Anion Gap 9 mmol/L (4-12); Aspartate Amino Transferase 45 U/L (17-59); Bilirubin,Total 0.3 mg/dL (0.2-1.3); Blood Urea Nitrogen 11 mg/dL (9-20); Calcium 8.8 mg/dL (8.4-10.2); Carbon Dioxide 28 mmol/L (22-30); Chloride 101 mmol/L (98-107); Estimated CRCL calculation 58 ml/min; Estimated Glomerular Filt Rate 41; Glucose 96 mg/dL (65-110); Lipase 87 U/L (23-300); Sodium 138 mmol/L (137-145)
[2025-02-05] MEDS: FAMOTIDINE 20 MG/2 ML VIAL IV PUSH (20:32)
--- OUTSIDE RECORDS SUMMARY | 2025-02-05 20:34 | XMS_ITS | Clinical Summary ---
Author Organization [facility] Address [id number] [place] [address] [place] [address] Care Team Providers Care Coat Ironer Hand Name Role Phone Unavailable Primary Care Provider [...]
[2025-02-05 20:51] LABS: Troponin I < 0.012 ng/mL (0.000-0.034)
[2025-02-05] MEDS: SODIUM CHLORIDE 0.9% IV 1,000 ML 999 ML IV CONT (23:11)
[2025-02-05 23:37] LABS: Add Urine Microscopic? NO; Appearance Urine Clear (Clear); Bilirubin Urine Negative (Negative); Blood Urine Negative (Negative); Color Urine Yellow (Yellow); Glucose Urine UA Negative (Negative); Ketones Urine Negative (Negative); Leukocyte Esterase Ur Negative LEU/UL (Negative); Nitrate Urine Negative (Negative); Protein Urine Negative (Negative); Specific Grav Ur 1.035 (1.001-1.035)
[2025-02-06 00:02] VITALS: BP 145/95; PULSE 94; RESP 15; O2SAT 99
== END 2025-02-06 00:05 | disposition home or self-care (01) ==
PROVIDERS: Student in an Organized Health Care Education/Training Program; Emergency Provider Physician Assistant; PCP Family Medicine
DX: R10.33 Periumbilical pain (principal); E78.5 Hyperlipidemia, unspecified; F90.0 Attention-deficit hyperactivity disorder, predominantly inattentive type; Z79.899 Other long term (current) drug therapy; R93.5 Abnormal findings on diagnostic imaging of other abdominal regions, including retroperitoneum; R94.31 Abnormal electrocardiogram [ECG] [EKG]
CPT/HCPCS: 36415; 74177; 80053; 81003; 83690; 84484; 85025; 93005; 96361; 96374; 99284; J7030; Q9967

== ENCOUNTER 2025-02-06 15:04 | Emergency (ER) | payer OTHER, SELFPAY ==
[2025-02-06 15:07] VITALS: BP 148/97; PULSE 97; RESP 18; TEMP 36.2; O2SAT 98
--- NOTE | 2025-02-06 15:49 | ED_ITS ---
HPI - Abdominal Pain General Chief Complaint: Abdominal Pain Stated Complaint: appendicitis Time Seen by Provider: 02/06/25 15:49 Source: patient Mode of arrival: ambulatory Limitations: no limitations History of Present Illness HPI narrative: Patient is a 49 y/o male who presents to the ED with c/o RLQ abd pain. Patient reports he developed RLQ pain 2 days ago. Was seen in the ED here last night and CT scan of his abdomen / pelvis showed possible appendicitis. Patient was feeling improved and wanted to try going home with surgery f/u as outpatient. Had a follow-up appointment with his primary care doctor today and was noted to have persistent tenderness in RLQ. Referred back to the ED. Patient reports chills overnight. Denies known fever, N/V. Related Data Allergies Allergy/AdvReac Type Severity Reaction Status Date / Time No Known Allergies Allergy Mild Verified 02/06/25 14:18 Review of Systems 2 Review of Systems: All systems reviewed & are unremarkable except as noted in HPI. All systems reviewed & are unremarkable except as noted in HPI and below PMFSH Past Medical History Medical History Quadriceps tendon rupture Knee pain, left Tachycardia Attention deficit hyperactivity disorder, predominantly inattentive type Dyslipidemia Testicular hypofunction Surgical History Surgical History History of surgery (~11/30/19) quadriceps tendon repair Lt Family History Family History Mother Patient's mother is in good health Father Patient's father is in good health Sibling Patient's sister is in good health Patient's brother is in good health Social History Social History Smoking status: Never smoker Second hand tobacco smoke exposure: No Alcohol intake: current Alcohol use details: occasionally Substance use: never Substance use type: does not use Living arrangements: with family Additional living arrangements comments: Occupation/Education: occupation Additional occupation/education comments: [employer] Gender identity (if verbalized by the patient): Male Sexual Orientation (if Verbalized by the Patient): Straight or Heterosexual Spiritual care concerns: No Exam 2 Narrative: GENERAL: Well appearing, well-nourished, non-toxic, in no acute distress. HEAD: Normocephalic, atraumatic. RESPIRATORY: Airway patent, respirations nonlabored. CARDIOVASCULAR: Regular rate and rhythm ABDOMINAL: Soft, TTP in RLQ, no rebound, nondistended. Normoactive BS. MUSCULOSKELETAL: Moves all extremities. No gross deformities. SKIN: Warm, dry, normal color. NEURO: A&O X3. Speech clear. PSYCHIATRIC: Appropriate mood and affect. Normal interaction. Course Vital Signs Vital signs: Vital Signs Temperature 97.2 F L 02/06/25 15:07 Pulse Rate 97 02/06/25 15:07 Respiratory Rate 18 02/06/25 15:07 Blood Pressure 148/97 H 02/06/25 15:07 Pulse Oximetry 98 02/06/25 15:07 Oxygen Delivery Room Air 02/06/25 15:07 Temperature 98.4 F 02/06/25 16:01 Pulse Rate 97 02/06/25 16:01 Respiratory Rate 16 02/06/25 16:01 Blood Pressure 171/96 H 02/06/25 16:01 Pulse Oximetry 97 02/06/25 16:01 Oxygen Delivery Room Air 02/06/25 16:01 MDM - Abdominal Pain MDM Narrative Medical decision making narrative: MSE by CHANELL in triage. Care resumed by myself. Patient with findings of possible appendicitis on imaging yesterday. Returns today at the recommendation of his PCP. Vital signs are stable upon arrival. Laboratory studies are fairly unremarkable. Patient continues to have no leukocytosis. WBC 6.6. Patient is in no acute distress. Would like to try going home again. Really not c/o much pain. Discussed with surgery, Dr. Melara, recommended dose of IV abx and d/c on cipro/flagyl X 5 days, f/u as outpatient with strict return precautions. Patient is agreeable to this plan. Feels comfortable going home. Given dose of Zosyn. Discussed very strict return precautions. D/C in stable condition. Medical Records Attestation: I reviewed the patient's medical records. Lab Data Attestation: I reviewed the patient's lab results. 02/06/25 15:54 02/06/25 15:54 Labs: Lab Results 02/06/25 Range/Units 15:54 WBC 6.6 (4.5-10.0) K/mm3 RBC 6.42 H (4.6-6.20) M/mm3 Hgb 17.7 (14.0-18.0) g/dL Hct 54.6 H (42.0-52.0) % MCV 85.0 (80-100) fl MCH 27.6 (26-34) pg MCHC 32.4 (32-36) g/dl RDW 16.0 H (11.5-14.5) % Plt Count 256 (150-375) k/mm3 MPV 9.4 (7.4-10.4) fl Immature Gran % (Auto) 0.5 (0-0.5) % Neut % (Auto) 59.6 (45.5-73.1) % Lymph % (Auto) 17.4 L (18.3-44.2) % [place] % (Auto) 14.9 H (2.6-8.5) % Eos % (Auto) 6.1 H (0-4.4) % Baso % (Auto) 1.5 H (0.2-1.2) % Lymph # (Auto) 1.14 (0.9-3.2) K/mm3 [place] # (Auto) 1.0 H (0.1-0.6) K/mm3 Eos # (Auto) 0.4 H (0-0.3) K/mm3 Baso # (Auto) 0.1 (0.0-0.1) K/mm3 Abs Immat Gran (auto) 0.03 (0.00-0.031) K/mm3 Absolute Neuts (auto) 3.9 (1.3-6.7) K/mm3 Absolute Nucleated RBC 0.000 (0.0-0.012) K/mm3 Nucleated RBC % 0.0 (0.0-0.2) % PT 12.9 (11.1-14.7) Seconds INR 0.9 APTT 23.1 (22.3-36.8) Seconds Sodium 139 (137-145) mmol/L Potassium 4.6 (3.4-5.0) mmol/L Chloride 101 (98-107) mmol/L Carbon Dioxide 29 (22-30) mmol/L Anion Gap 9 (4-12) mmol/L BUN 14 (9-20) mg/dL Creatinine 1.32 H (0.7-1.3) mg/dL Estim Creat Clear Calc 79 ml/min Estimated GFR 58 L (59 - ) Glucose 102 (65-110) mg/dL Calcium 9.6 (8.4-10.2) mg/dL Total Bilirubin 0.4 (0.2-1.3) mg/dL AST 48 (17-59) U/L ALT 67 H (6-50) U/L Alkaline Phosphatase 60 (38-126) U/L Total Protein 7.0 (6.3-8.2) g/dL Albumin 4.1 (3.5-5.1) g/dL Discharge Plan Discharge Clinical Impression: Right lower quadrant abdominal pain Patient Disposition: Home, Self-Care Condition: Stable Instructions: Antibiotic Form, Acute Abdominal Pain (ED), Peritonitis (ED) Additional Instructions: Take antibiotics as prescribed for appendicitis. Avoid alcohol use while taking Flagyl as this can cause a vomiting reaction. Follow-up with General surgery for further evaluation. Call office to make appointment. Return to the ED if you experience worsening or severe right lower abdominal pain, unable to keep down food or drink, persistent vomiting, fevers, or any other symptoms of concern. Patient Language: Australian Prescriptions: New metronidazole 500 mg tablet 500 mg PO Q8H 5 Days Qty: 15 0RF ciprofloxacin HCl 500 mg tablet 500 mg PO Q12H 5 Days Qty: 10 0RF No Action amoxicillin-pot clavulanate 875-125 mg tablet 1 tablet PO BID Qty: 14 0RF prednisone 20 mg tablet 40 mg PO DAILY Qty: 10 0RF pantoprazole 20 mg tablet,delayed release (DR/EC) 20 mg PO QAM 56 Days Qty: 90 1RF dextroamphetamine-amphetamine [Adderall] 20 mg tablet 20 mg PO TID Qty: 90 0RF Rx Instructions: administer doses at least 4-6 hours apart Follow-up/Referrals: Arturo Alexander MD [Primary Care Provider] - Jayy Melara MD [Physician] - (GENERAL SURGERY) Time of Disposition: 17:37
[2025-02-06 16:00] LABS: Basophils Absolute Auto 0.1 K/mm3 (0.0-0.1); Basophils Percent Auto 1.5 % (0.2-1.2); Eosinophils Absolute Auto 0.4 K/mm3 (0-0.3); Eosinophils Percent Auto 6.1 % (0-4.4); Hematocrit 54.6 % (42.0-52.0); Hemoglobin 17.7 g/dL (14.0-18.0); Immature Granulocyte Absolute 0.03 K/mm3 (0.00-0.031); Immature Granulocyte Percent A 0.5 % (0-0.5); Lymphocytes Absolute Auto 1.14 K/mm3 (0.9-3.2); Lymphocytes Percent Auto 17.4 % (18.3-44.2); Mean Corpuscular HGB Conc 32.4 g/dl (32-36); Mean Corpuscular Hemoglobin 27.6 pg (26-34); Mean Platelet Volume 9.4 fl (7.4-10.4); Monocytes Percent Auto 14.9 % (2.6-8.5); Neutrophils Absolute Auto 3.9 K/mm3 (1.3-6.7); Neutrophils Percent Auto 59.6 % (45.5-73.1); Platelet Count Result 256 k/mm3 (150-375); Red Blood Count 6.42 M/mm3 (4.6-6.20); White Blood Count 6.6 K/mm3 (4.5-10.0)
[2025-02-06 16:01] VITALS: BP 171/96; PULSE 97; RESP 16; TEMP 36.9; O2SAT 97
--- OUTSIDE RECORDS SUMMARY | 2025-02-06 16:08 | XMS_ITS | Clinical Summary ---
Author Organization [facility] Address [id number] [place] [address] [place] [address] Care Team Providers Care Filing Clerk Name Role Phone Unavailable Primary Care Provider [...]
[2025-02-06 16:11] LABS: Alanine Aminotransferase 67 U/L (6-50); Albumin Level 4.1 g/dL (3.5-5.1); Alkaline Phosphatase 60 U/L (38-126); Anion Gap 9 mmol/L (4-12); Aspartate Amino Transferase 48 U/L (17-59); Bilirubin,Total 0.4 mg/dL (0.2-1.3); Blood Urea Nitrogen 14 mg/dL (9-20); Calcium 9.6 mg/dL (8.4-10.2); Carbon Dioxide 29 mmol/L (22-30); Chloride 101 mmol/L (98-107); Estimated CRCL calculation 79 ml/min; Estimated Glomerular Filt Rate 58; Glucose 102 mg/dL (65-110); Potassium 4.6 mmol/L (3.4-5.0); Sodium 139 mmol/L (137-145)
[2025-02-06 16:13] LABS: INR 0.9; Partial Thromboplastin Time 23.1 Seconds (22.3-36.8); Prothrombin Time 12.9 Seconds (11.1-14.7)
--- OUTSIDE RECORDS SUMMARY | 2025-02-06 16:31 | XMS_ITS | Clinical Summary ---
Author Organization [facility] Address [id number] [place] [address] [place] [address] Care Team Providers Care Tenter Name Role Phone Unavailable Primary Care Provider [...]
[2025-02-06] MEDS: PIPERACILLN/TAZ 3.375GM/NS50ML 3.375 GM/50 ML BAG IVPB (17:46)
[2025-02-06 18:15] VITALS: BP 159/99; PULSE 98; RESP 16; O2SAT 100
== END 2025-02-06 18:15 | disposition home or self-care (01) ==
PROVIDERS: Emergency Provider Physician Assistant; PCP Family Medicine
DX: R10.31 Right lower quadrant pain (principal); E78.5 Hyperlipidemia, unspecified; F90.0 Attention-deficit hyperactivity disorder, predominantly inattentive type; Z79.899 Other long term (current) drug therapy
CPT/HCPCS: 36415; 80053; 85025; 85610; 85730; 96365; 99284; J2543

== ENCOUNTER 2025-02-24 14:03 | Day surgery (SDC) | payer OTHER, SELFPAY ==
[2025-02-24] VITALS (9 sets, daily range): BP systolic 109–140; BP diastolic 66–88; PULSE 94–106; RESP 18–24; TEMP 36.3–36.7; O2SAT 93–100
--- NOTE | ~2025-02-24 | CT_ITS ---
CLINICAL INDICATION: Right-sided abdominal pain COMPARISON: 02/05/2025. TECHNIQUE: Multiple contiguous axial images of the abdomen and pelvis were performed following the ad ministration of with 100 mL Omnipaque-350 intravenous contrast The dose-length product (DLP) was 1432.90 mGy-cm. Automated exposure control and iterative reconstruction technique were employed. FINDINGS/OBSERVATIONS: Visualized lower thorax: The bilateral lung bases are clear. The heart is of normal size, without pericardial effusion. Small hiatal hernia is present. Liver: The liver demonstrates homogeneous enhancement and is not enlarged. Gallbladder and biliary system: The gallbladder is decompressed, and otherwise unremarkable. Pancreas: The pancreas enhances homogeneously without ductal dilatation. Spleen: The spleen enhances homogeneously and is not enlarged. Kidneys: The bilateral kidneys enhance symmetrically without hydronephrosis or renal calculi. Adrenal glands: Unremarkable. Gastrointestinal tract: Trace fecal stasis Appendix: Redemonstration of dilatation of the appendix with hyperemia and surrounding inflammatory change, fin dings consistent with acute appendicitis. The appendix extends medially from the cecum, best seen on axial series, images 115 through 121 and c oronal series, images 43 through 47. The appendix measures 10.5 cm in caliber and contains no air. Vasculature: Unremarkable. Lymph nodes: No pathologically enlarged or morphologically suspicious lymph nodes within the retroperitoneum or at the root of the mesentery. Pelvic structures: The bladder is distended, and otherwise unremarkable. The prostate gland is not enlarged. Body wall and musculoskeletal: Complex fat-containing umbilical hernia. Age-appropriate degenerative disease within the lumbosacral spine. IMPRESSION: Redemonstration of acute (likely on chronic) appendicitis, which improved slightly after antibiotics, consistent with patient's history, without resolution. No perforation is appreciated. Significant surrounding inflammatory change is noted. No rim-enhancing fluid collection is identified. Reviewed, dictated and finalized at location A. IMPRESSION: Redemonstration of acute (likely on chronic) appendicitis, which improved sligh tly after antibiotics, consistent with patient's history, without resolution. No perforation is appreciated. Significant surrounding inflammatory change is noted. No rim-enhancing fluid collection is identified.
--- OUTSIDE RECORDS SUMMARY | 2025-02-24 15:42 | XMS_ITS | Clinical Summary ---
Author Organization [facility] Address [id number] [place] [address] [place] [address] Care Team Providers Care Geriatric Nurse Name Role Phone Unavailable Primary Care Provider [...] patient's age to complete this topic Insurance [place]IAM [place] [id number]
[2025-02-24 15:46] LABS: Basophils Absolute Auto 0.1 K/mm3 (0.0-0.1); Basophils Percent Auto 0.7 % (0.2-1.2); Eosinophils Absolute Auto 0.4 K/mm3 (0-0.3); Eosinophils Percent Auto 2.8 % (0-4.4); Hematocrit 53.4 % (42.0-52.0); Hemoglobin 17.1 g/dL (14.0-18.0); Immature Granulocyte Absolute 0.09 K/mm3 (0.00-0.031); Immature Granulocyte Percent A 0.6 % (0-0.5); Lymphocytes Absolute Auto 1.32 K/mm3 (0.9-3.2); Lymphocytes Percent Auto 9.5 % (18.3-44.2); Mean Corpuscular Hemoglobin 27.4 pg (26-34); Mean Corpuscular Volume 85.6 fl (80-100); Mean Platelet Volume 9.6 fl (7.4-10.4); Monocytes Absolute Auto 0.8 K/mm3 (0.1-0.6); Monocytes Percent Auto 6.1 % (2.6-8.5); Neutrophils Absolute Auto 11.1 K/mm3 (1.3-6.7); Neutrophils Percent Auto 80.3 % (45.5-73.1); Platelet Count Result 270 k/mm3 (150-375); Red Blood Count 6.24 M/mm3 (4.6-6.20); Red Cell Distribution Width 16.5 % (11.5-14.5); White Blood Count 13.9 K/mm3 (4.5-10.0)
[2025-02-24 15:57] LABS: Alanine Aminotransferase 60 U/L (6-50); Albumin Level 3.8 g/dL (3.5-5.1); Alkaline Phosphatase 65 U/L (38-126); Anion Gap 9 mmol/L (4-12); Aspartate Amino Transferase 37 U/L (17-59); Bilirubin,Total 0.8 mg/dL (0.2-1.3); Blood Urea Nitrogen 16 mg/dL (9-20); Calcium 8.9 mg/dL (8.4-10.2); Carbon Dioxide 28 mmol/L (22-30); Chloride 102 mmol/L (98-107); Estimated CRCL calculation 94 ml/min; Estimated Glomerular Filt Rate > 60; Glucose 92 mg/dL (65-110); Potassium 4.4 mmol/L (3.4-5.0); Sodium 139 mmol/L (137-145)
--- NOTE | 2025-02-24 16:19 | ED_ITS ---
HPI - Abdominal Pain General Chief Complaint: Abdominal Pain Stated Complaint: abdominal pain Time Seen by Provider: 02/24/25 15:29 Source: patient and old records reviewed Mode of arrival: ambulatory Limitations: no limitations History of Present Illness HPI narrative: Patient is a 49-year-old male who presents the ED with report of right lower quadrant abdominal pain. Patient reports he was seen in the ED here on 02/05, 02/06 and diagnosed with early appendicitis. Patient was nearly asymptomatic at that time, given the option of surgery versus antibiotics. Ultimately completed a antibiotic course and states pain improved, however pain returned today while on a field trip for his son. States the pain is more severe than it was previously, present in right lower abdomen. Denies nausea, vomiting. He has had some constipation recently. Denies fevers. Has not taken anything for pain. Related Data Allergies Allergy/AdvReac Type Severity Reaction Status Date / Time No Known Allergies Allergy Mild Verified 02/24/25 14:08 Review of Systems 2 Review of Systems: All systems reviewed & are unremarkable except as noted in HPI. All systems reviewed & are unremarkable except as noted in HPI and below PMFSH Past Medical History Medical History Quadriceps tendon rupture Knee pain, left Tachycardia Attention deficit hyperactivity disorder, predominantly inattentive type Dyslipidemia Testicular hypofunction Surgical History Surgical History History of surgery (~11/30/19) quadriceps tendon repair Lt Family History Family History Mother Patient's mother is in good health Father Patient's father is in good health Sibling Patient's sister is in good health Patient's brother is in good health Social History Social History Smoking status: Never smoker Second hand tobacco smoke exposure: No Alcohol intake: current Alcohol use details: occasionally Substance use: never Substance use type: does not use Living arrangements: with family Additional living arrangements comments: Occupation/Education: occupation Additional occupation/education comments: [employer] Gender identity (if verbalized by the patient): Male Sexual Orientation (if Verbalized by the Patient): Straight or Heterosexual Spiritual care concerns: No Exam 2 Narrative: GENERAL: Well appearing, obese with BMI of 37.0, non-toxic, in no acute distress. HEAD: Normocephalic, atraumatic. RESPIRATORY: Airway patent, respirations nonlabored. Clear to auscultation bilaterally, no rales, rhonchi, wheezing. CARDIOVASCULAR: Regular rate and rhythm ABDOMINAL: Soft, focal tenderness in right lower quadrant, positive McBurney's point tenderness, positive Rovsing sign, no rebound, nondistended. Normoactive BS. MUSCULOSKELETAL: Moves all extremities. No gross deformities. SKIN: Warm, dry, normal color. NEURO: A&O X3. Speech clear. PSYCHIATRIC: Appropriate mood and affect. Normal interaction. Course Vital Signs Vital signs: Vital Signs Temperature 97.4 F L 02/24/25 14:04 Pulse Rate 102 H 02/24/25 14:04 Respiratory Rate 18 02/24/25 14:04 Blood Pressure 140/86 02/24/25 14:04 Pulse Oximetry 99 02/24/25 14:04 Oxygen Delivery Room Air 02/24/25 14:04 Temperature 97.4 F L 02/24/25 14:04 Pulse Rate 97 02/24/25 15:45 Respiratory Rate 22 H 02/24/25 15:45 Blood Pressure 109/80 02/24/25 15:45 Pulse Oximetry 98 02/24/25 15:45 Oxygen Delivery Room Air 02/24/25 14:04 MDM - Abdominal Pain MDM Narrative Medical decision making narrative: Patient presented to ED with worsening RLQ abdominal pain, recent appendicitis, treated with antibiotics. Patient minimally tachycardic upon arrival. Delcined pain medication upon my evaluation. Focal RLQ tenderness, +rosving's. Cbc with blood cell count of 13.9. On previous visits for appendicitis, patient's white blood cell count was normal. H&H is stable. CMP is unremarkable. CT scan of abdomen/pelvis was obtained and showing acute on chronic appendicitis without resolution from previous with significant surrounding inflammatory changes. No perforation. Discussed case with Dr. Melara, General surgery, will talk to distribution warehouse manager about taking patient to OR today. Patient will go to the OR today. He is in agreement with plan and need for surgery. Given fluids and dose of zosyn in the ED. Medical Records Attestation: I reviewed the patient's medical records. Lab Data Attestation: I reviewed the patient's lab results. 02/24/25 15:37 02/24/25 15:37 Labs: Lab Results 02/24/25 Range/Units 15:37 WBC 13.9 H (4.5-10.0) K/mm3 RBC 6.24 H (4.6-6.20) M/mm3 Hgb 17.1 (14.0-18.0) g/dL Hct 53.4 H (42.0-52.0) % MCV 85.6 (80-100) fl MCH 27.4 (26-34) pg MCHC 32.0 (32-36) g/dl RDW 16.5 H (11.5-14.5) % Plt Count 270 (150-375) k/mm3 MPV 9.6 (7.4-10.4) fl Immature Gran % (Auto) 0.6 H (0-0.5) % Neut % (Auto) 80.3 H (45.5-73.1) % Lymph % (Auto) 9.5 L (18.3-44.2) % [place] % (Auto) 6.1 (2.6-8.5) % Eos % (Auto) 2.8 (0-4.4) % Baso % (Auto) 0.7 (0.2-1.2) % Lymph # (Auto) 1.32 (0.9-3.2) K/mm3 [place] # (Auto) 0.8 H (0.1-0.6) K/mm3 Eos # (Auto) 0.4 H (0-0.3) K/mm3 Baso # (Auto) 0.1 (0.0-0.1) K/mm3 Abs Immat Gran (auto) 0.09 H (0.00-0.031) K/mm3 Absolute Neuts (auto) 11.1 H (1.3-6.7) K/mm3 Absolute Nucleated RBC 0.000 (0.0-0.012) K/mm3 Nucleated RBC % 0.0 (0.0-0.2) % Sodium 139 (137-145) mmol/L Potassium 4.4 (3.4-5.0) mmol/L Chloride 102 (98-107) mmol/L Carbon Dioxide 28 (22-30) mmol/L Anion Gap 9 (4-12) mmol/L BUN 16 (9-20) mg/dL Creatinine 1.11 (0.7-1.3) mg/dL Estim Creat Clear Calc 94 ml/min Estimated GFR > 60 (59 - ) Glucose 92 (65-110) mg/dL Calcium 8.9 (8.4-10.2) mg/dL Total Bilirubin 0.8 (0.2-1.3) mg/dL AST 37 (17-59) U/L ALT 60 H (6-50) U/L Alkaline Phosphatase 65 (38-126) U/L Total Protein 7.0 (6.3-8.2) g/dL Albumin 3.8 (3.5-5.1) g/dL Imaging Data Attestation: I personally reviewed and interpreted this imaging study as follows: Radiologist's impression: ITS Impressions Abdomen/Pelvis CT 02/24/25 16:32 IMPRESSION: Redemonstration of acute (likely on chronic) appendicitis, which improved slightly after antibiotics, consistent with patient's history, without resolution. No perforation is appreciated. Significant surrounding inflammatory change is noted. No rim-enhancing fluid collection is identified. Discharge Plan Discharge Clinical Impression: Acute appendicitis Qualifiers: Acute appendicitis type: with localized peritonitis Appendicitis gangrene presence: without gangrene Appendicitis perforation presence: without perforation Appendicitis abscess presence: without abscess Qualified Code(s): K 35.30 - Acute appendicitis with localized peritonitis, without perforation or gangrene Patient Disposition: Other Condition: Stable Patient Language: Egyptian Prescriptions: No Action dextroamphetamine-amphetamine [Adderall] 20 mg tablet 20 mg PO TID Qty: 90 0RF Rx Instructions: administer doses at least 4-6 hours apart pantoprazole 20 mg tablet,delayed release (DR/EC) 20 mg PO QAM 56 Days Qty: 90 1RF metronidazole 500 mg tablet 500 mg PO Q8H 5 Days Qty: 15 0RF Follow-up/Referrals: Arturo Alexander MD [Primary Care Provider] -
[2025-02-24] MEDS: PIPERACILLN/TAZ 3.375GM/NS50ML 3.375 GM/50 ML BAG IVPB (17:23)
[2025-02-24] MEDS: SODIUM CHLORIDE 0.9% IV 1,000 ML 999 ML IV CONT (17:23)
--- OUTSIDE RECORDS SUMMARY | 2025-02-24 17:34 | XMS_ITS | Clinical Summary ---
Author Organization [facility] Address [id number] [place] [address] [place] [address] Care Team Providers Care Manager Housekeeping Name Role Phone Unavailable Primary Care Provider [...] (1 of 3 - 19+ 3-dose series) 05/13 COLORECTAL SCREENING 2022 Colorectal Cancer Screening 2022 FIT-DNA Q 3 years 2022 FIT/FOBT Q 1 year 2022 Flex Sig/CT Colonography Q 5 years 2022 INFLUENZA VACCINE (#1) 2024 Insurance [facility] Member Subscriber Plan / Payer (Ef fective 2021-Present) Name:Laron Juan Relation to Subscriber:Self Name:Laron Juan Payer ID:[id number] (NAIC) Type:Commercial Address: [address] [facility] [id number] [address] [address]
--- NOTE | 2025-02-24 17:38 | PM.SD2 ---
Same Day Admit/Disch: HPI History of Present Illness Chief complaint: Appendicitis Narrative: Laron Juan is a 49 year old male who was on a field trip with his son today when he started having right lower quadrant abdominal pain. The pain was pretty severe and he came to the emergency room when he could. Patient, interestingly, had some right-sided periumbilical and epigastric pain on 02/05 and 02/06/2025. CT scan of the abdomen and pelvis at that time showed possible early appendicitis with an 8 mm appendix. Patient's symptoms were mild and he preferred to have this treated with medical management. He was given a dose of IV antibiotics in the emergency room and then 5 days of ciprofloxacin and Flagyl. His symptoms completely went away and he was feeling good. He did not return for follow-up. Today, 18 days after he was last in the emergency room, the pain came on much worse than it had previously. He had no nausea and vomiting. He had no fever or chills. In the emergency room he was noted to be tender in the right lower quadrant with guarding. He was tender at McBurney's point and had a positive Rovsing's sign. [place] [address] scan showed a 10.5 mm appendix with evidence of inflammation consistent with acute appendicitis. He is taken to the operating room now for laparoscopic appendectomy. [facility] Past Medical History Medical History Quadriceps tendon rupture Knee pain, left Tachycardia Attention deficit hyperactivity disorder, predominantly inattentive type Dyslipidemia Testicular hypofunction Surgical History Surgical History History of surgery (~11/30/19) quadriceps tendon repair Lt Family History Family History Mother Patient's mother is in good health Father Patient's father is in good health Sibling Patient's sister is in good health Patient's brother is in good health Social History Social History Smoking status: Never smoker Second hand tobacco smoke exposure: No Alcohol intake: current Alcohol use details: occasionally Substance use: never Substance use type: does not use Living arrangements: with family Additional living arrangements comments: Occupation/Education: occupation Additional occupation/education comments: [employer] Gender identity (if verbalized by the patient): Male Sexual Orientation (if Verbalized by the Patient): Straight or Heterosexual Spiritual care concerns: No Same Day Admit/Disch: Med Pre-admit Medications Home Medications ?Medication ?Instructions ?Recorded ?Confirmed ?Type pantoprazole 20 mg tablet,delayed 20 mg PO QAM 8 weeks #90 tabs 02/06/25 02/06/25 Rx release dextroamphetamine-amphetamine 20 20 mg PO TID #90 tabs 02/18/25 02/18/25 Rx mg tablet (Adderall) ketorolac 10 mg tablet 10 mg PO Q6H 4 days #16 tabs 02/24/25 Rx oxycodone-acetaminophen 5 mg-325 0.5 - 1 tablet PO Q4H PRN pain #10 02/24/25 Rx mg tablet (Percocet) tabs Review of Systems Review of Systems All systems reviewed & are unremarkable except as noted in HPI and below (HPI) Exam Const: General: no acute distress, alert, awake and overweight; No comfortable Orientation/consciousness: patient oriented x3 HENMT: Head: normocephalic and atraumatic Mouth: Yes Normal oral and palatal mucosa present Eyes: Conjunctivae: conjunctivae normal Pupils: Equal, round and reactive pupils present EOM: EOMs intact bilaterally Neck: Neck: normal visual inspection, no lymphadenopathy and nontender Resp: Effort & Inspection: normal respiratory effort Auscultation: clear to auscultation bilaterally Cardio: Rate: regular rate Rhythm: regular rhythm Heart sounds: no gallops, no murmurs and no rubs GI: Inspection: non-distended and obesity GI Palp: Yes Soft to palpation, Yes Tenderness to palpation present (GI) (Right lower quadrant with guarding), Yes Guarding due to palpation present (GI), No Hepatomegaly present and No Splenomegaly present Skin: Lesions: no lesions Rashes: no rashes Neuro: General: no focal motor deficits and CN's II-XI intact bilaterally Cranial nerves: Yes Equal, round and reactive pupils present, Yes Bilaterally intact EOM present, Yes facial symmetry and Yes Midline tongue present Speech: normal speech Motor exam (neuro): 5/5 motor strength present throughout and Motor abnormalities not present Extrem: General: no clubbing, cyanosis or edema and edema Psych: Affect: normal affect Thought process: Normal thought process present Insight: Good insight present (Psych) DS: Data Data Completed and Pending Labs on day of discharge: Labs from last 24 hours 02/24/25 15:37 WBC 13.9 H RBC 6.24 H Hgb 17.1 Hct 53.4 H MCV 85.6 MCH 27.4 MCHC 32.0 RDW 16.5 H Plt Count 270 MPV 9.6 Immature Gran % (Auto) 0.6 H Neut % (Auto) 80.3 H Lymph % (Auto) 9.5 L [place] % (Auto) 6.1 Eos % (Auto) 2.8 Baso % (Auto) 0.7 Lymph # (Auto) 1.32 [place] # (Auto) 0.8 H Eos # (Auto) 0.4 H Baso # (Auto) 0.1 Abs Immat Gran (auto) 0.09 H Absolute Neuts (auto) 11.1 H Absolute Nucleated RBC 0.000 Nucleated RBC % 0.0 Sodium 139 Potassium 4.4 Chloride 102 Carbon Dioxide 28 Anion Gap 9 BUN 16 Creatinine 1.11 Estim Creat Clear Calc 94 Estimated GFR > 60 Glucose 92 Calcium 8.9 Total Bilirubin 0.8 AST 37 ALT 60 H Alkaline Phosphatase 65 Total Protein 7.0 Albumin 3.8 DS: Summary Time Spent with Patient Time attestation: Total time spent providing and/or coordinating discharge services: DS: Admitting Diagnosis Discharge Date 02/24/2025 Admitting Diagnosis Acute appendicitis-patient has failed medical management with recurrent appendicitis. I have recommended and he agrees to proceed with laparoscopic appendectomy. The procedure was discussed including the length of the procedure and the typical recovery. We will plan on letting him go home after he has had a chance to awaken after the for surgery. All questions were answered, he understands and agrees to go ahead. DS: Discharge Diagnosis Discharge Diagnosis (1) Acute appendicitis: Qualifiers: Acute appendicitis type: with localized peritonitis Appendicitis abscess presence: without abscess Appendicitis gangrene presence: without gangrene Appendicitis perforation presence: without perforation Qualified Code(s): K35.30 - Acute appendicitis with localized peritonitis, without perforation or gangrene Code(s): K35.80 - Unspecified acute appendicitis Status: Acute Assessment and Plan: Laparoscopic appendectomy performed by Dr. Melara 02/24/2025 Discharge Plan Discharge Patient Disposition: Home Discharge Instructions: 1. May shower the day after surgery over incisions. 2. Call office for: -Wound increasingly painful or bleeding -Vomiting -Fever of greater than 101 degrees 3. Expect some blood on dressing and old blood on skin. 4. If no bowel movement for three days, take 1 oz. (30 ml) Milk of Magnesia, if no results, take Fleets enema. 5. No heavy lifting > 15-20 pounds for 2 weeks. 6. No driving for 3 days or while taking narcotic pain medications. 7. Up walking 10-30 minutes three times per day. 8. Resume previous home medications. 9. Follow-up 10-14 days in office for wound check or as previously scheduled. 10. Oral pain medications prescription to be sent home with patient. 11. NUTRITION: Start out by drinking fluids and increase your diet as tolerated. If you experience nausea, try dry toast, crackers, and 7-UP. If nausea or vomiting persists, contact your surgeon?s office. Patient Instructions: Antibiotic Form Patient Language: Spanish Stand Alone Forms: General Discharge Information, Work/School Release IP Follow-up/Referrals: Jayy Melara MD [Physician] - 2 Weeks Discharge Medications: New ketorolac 10 mg tablet 10 mg PO Q6H 4 Days Qty: 16 0RF oxycodone-acetaminophen [Percocet] 5-325 mg tablet 0.5 - 1 tablet PO Q4H PRN (Reason: pain) Qty: 10 0RF Continued dextroamphetamine-amphetamine [Adderall] 20 mg tablet 20 mg PO TID Qty: 90 0RF Rx Instructions: administer doses at least 4-6 hours apart pantoprazole 20 mg tablet,delayed release (DR/EC) 20 mg PO QAM 56 Days Qty: 90 1RF Discontinued metronidazole 500 mg tablet 500 mg PO Q8H 5 Days Qty: 15 0RF
[2025-02-24] MEDS: LACTATED RINGERS 1,000 ML 30 ML IV CONT ×2 (18:00→19:20)
--- OUTSIDE RECORDS SUMMARY | 2025-02-24 18:02 | XMS_ITS | Clinical Summary ---
Author Organization [facility] Address [id number] [place] [address] [place] [address] Care Team Providers Care Mechanical Oxidizer Name Role Phone Unavailable Primary Care Provider [...] years 2022 INFLUENZA VACCINE (#1) 2024 Insurance [facility] Member Subscriber Plan / Payer (Ef fective 2021-Present) Name:Laron Juan Relation to Subscriber:Self Name:Laron Juan Payer ID:[id number] (NAIC) Type:Commercial Address: [address] [facility] [address] [address] [place] [address]
--- NOTE | 2025-02-24 18:03 | P.PNAN_ITS ---
Anes - Initial Pre Proc Eval Procedure: Operation Date: 02/24/25 18:30 Proposed Procedures p Laparoscopic Appendectomy - Jayy Melara MD Date/Time: 02/24/25 18:03 Surgeon: Jayy Melara MD Pre Op Diagnosis: Appendicitis Patient Data Age: 49 Gender: M Height: 1.78 m Weight: 117.1 kg Last Vital Signs Temp 97.4 F L 02/24/25 14:04 Pulse 106 H 02/24/25 17:24 Resp 24 H 02/24/25 17:24 BP 130/88 02/24/25 17:24 Pulse Ox 99 02/24/25 17:24 O2 Del Method Room Air 02/24/25 14:04 Allergies Allergy/AdvReac Type Severity Reaction Status Date / Time No Known Allergies Allergy Mild Verified 02/24/25 14:08 Home Medications ?Medication ?Instructions ?Recorded ?Confirmed ?Type pantoprazole 20 mg tablet,delayed 20 mg PO QAM 8 weeks #90 tabs 02/06/25 02/06/25 Rx release dextroamphetamine-amphetamine 20 20 mg PO TID #90 tabs 02/18/25 02/18/25 Rx mg tablet (Adderall) ketorolac 10 mg tablet 10 mg PO Q6H 4 days #16 tabs 02/24/25 Rx oxycodone-acetaminophen 5 mg-325 0.5 - 1 tablet PO Q4H PRN pain #10 02/24/25 Rx mg tablet (Percocet) tabs Laboratory Tests 02/24/25 15:37 WBC 13.9 H K/mm3 (4.5-10.0) RBC 6.24 H M/mm3 (4.6-6.20) Hgb 17.1 g/dL (14.0-18.0) Hct 53.4 H % (42.0-52.0) MCV 85.6 fl (80-100) MCH 27.4 pg (26-34) MCHC 32.0 g/dl (32-36) RDW 16.5 H % (11.5-14.5) Plt Count 270 k/mm3 (150-375) MPV 9.6 fl (7.4-10.4) Immature Gran % (Auto) 0.6 H % (0-0.5) Neut % (Auto) 80.3 H % (45.5-73.1) Lymph % (Auto) 9.5 L % (18.3-44.2) [place] % (Auto) 6.1 % (2.6-8.5) Eos % (Auto) 2.8 % (0-4.4) Baso % (Auto) 0.7 % (0.2-1.2) Lymph # (Auto) 1.32 K/mm3 (0.9-3.2) [place] # (Auto) 0.8 H K/mm3 (0.1-0.6) Eos # (Auto) 0.4 H K/mm3 (0-0.3) Baso # (Auto) 0.1 K/mm3 (0.0-0.1) Abs Immat Gran (auto) 0.09 H K/mm3 (0.00-0.031) Absolute Neuts (auto) 11.1 H K/mm3 (1.3-6.7) Absolute Nucleated RBC 0.000 K/mm3 (0.0-0.012) Nucleated RBC % 0.0 % (0.0-0.2) Sodium 139 mmol/L (137-145) Potassium 4.4 mmol/L (3.4-5.0) Chloride 102 mmol/L (98-107) Carbon Dioxide 28 mmol/L (22-30) Anion Gap 9 mmol/L (4-12) BUN 16 mg/dL (9-20) Creatinine 1.11 mg/dL (0.7-1.3) Estim Creat Clear Calc 94 ml/min Estimated GFR > 60 (59 - ) Glucose 92 mg/dL (65-110) Calcium 8.9 mg/dL (8.4-10.2) Total Bilirubin 0.8 mg/dL (0.2-1.3) AST 37 U/L (17-59) ALT 60 H U/L (6-50) Alkaline Phosphatase 65 U/L (38-126) Total Protein 7.0 g/dL (6.3-8.2) Albumin 3.8 g/dL (3.5-5.1) Patient hx anesthesia problems: none Family hx anesthesia problems: none Results Review: All pre-operative results and documents have been reviewed as part of the pre- operative evaluation. [facility] Past Medical History Medical History Quadriceps tendon rupture Knee pain, left Tachycardia Attention deficit hyperactivity disorder, predominantly inattentive type Dyslipidemia Testicular hypofunction Surgical History Surgical History History of surgery (~11/30/19) quadriceps tendon repair Lt Family History Family History Mother Patient's mother is in good health Father Patient's father is in good health Sibling Patient's sister is in good health Patient's brother is in good health Social History Social History Smoking status: Never smoker Second hand tobacco smoke exposure: No Alcohol intake: current Alcohol use details: occasionally Substance use: never Substance use type: does not use Living arrangements: with family Additional living arrangements comments: Occupation/Education: occupation Additional occupation/education comments: [employer] Gender identity (if verbalized by the patient): Male Sexual Orientation (if Verbalized by the Patient): Straight or Heterosexual Spiritual care concerns: No Anes - Eval Final PreProcedure Day of Procedure 02/24/25 18:03 Patient weight: obese Lungs: normal air movement Airway: Mallampati scale class II Neurological: alert and oriented Last oral intake: 6 hours ([place] around 1200 noon. ) ASA classification: III Emergent: yes Anesthetic plan: proceed Anesthesia type and monitoring: general ETT and standard monitoring Results Review: All pre-operative results and documents have been reviewed as part of the pre- operative evaluation. Pt reports overall active w wt trainingg 4 x weekly, no cp or sob, suspect CHRISTINE but never had formal testing. Informed Consent: The patient's anesthetic plan and its attendant risks and benefits were discussed with the patient/family/POA. Questions were solicited and answers provided to the satisfaction of the patient/family/POA.
[2025-02-24] MEDS: BUPIVACAINE/EPINEPHRINE 0.5% 50 ML VIAL 30 ML INFILTRATE (18:31)
--- NOTE | 2025-02-24 19:15 | P.OP_ITS ---
Procedure Note - Detailed Date of Procedure 02/24/25 Pre-op Diagnosis Appendicitis Post-op Diagnosis Same Procedure Performed Laparoscopic appendectomy Surgeon Jayy Melara MD Polishing Machine Tender Bessie GLEZ Anesthesia General and Local Indications Patient presented with right lower quadrant pain and tenderness at McBurney's point with a positive Rovsing's sign. He had leukocytosis and evidence of appendicitis on CT scan. He is taken to surgery now for laparoscopic appendectomy Findings Acute appendicitis, no abscess, no sign of ruptured appendix Description of Procedure Patient was taken to surgery and induced into general anesthesia. The abdomen is prepped and draped. Trocars were placed in the usual fashion using [employer] optical trocars and a 5 mm camera. Patient was then placed in Trendelenburg with the right-side elevated. We found the cecum but the small intestine was still obstructing our view of the appendix as the appendix appeared to be diving posteriorly. I went ahead and put another 5 mm port in the right upper quadrant. This gave us great visualization. The appendix was identified and then carefully dissected free from surrounding structures and inflammatory adhesions. There was some fibrin is exudate in the vicinity but I did not see any sign of a ruptured appendix. We dissected and then divided the mesoappendix using the cautery. The appendiceal artery was thoroughly cauterized and divided. The appendix is then dissected and skeletonized at its base. A Vicryl endoloop was used to ligate the appendix at its base. The appendix was then amputated just above the ligature. The mucosa of the appendiceal stump was cauterized thoroughly. Appendix was placed immediately in an Endo-Catch bag was retrieved through the 10 11 left lower quadrant trocar site. The trocar was replaced. We then reviewed the areas of operative dissection and the appendiceal stump. This area was irrigated and suctioned repeatedly. All looked good with no evidence of bleeding or other problems. We then evacuated CO2 and removed the trocar sleeves. Skin wounds were closed with subcuticular 4-0 Monocryl skin suture. The wounds were dressed with Exofin surgical adhesive. Patient was awakened and taken to recovery in good condition. Sponge and needle counts were correct x2. Estimated Blood Loss -20 Drains No Packing No Pathology Yes (Appendix) Complications None Condition Stable Disposition PACU [facility] Billing Surgery - Charge Forward: Surgery Billing (Laparoscopic appendectomy)
[2025-02-24] MEDS: oxyCODONE HCL (*CRX) 5 MG TAB IR PO (20:20)
== END 2025-02-24 20:48 | disposition home or self-care (01) ==
LOC: ANHED 17:50 → ANHSURGERY 17:53
PROVIDERS: Emergency Provider Physician Assistant; PCP Family Medicine; Visit Provider Surgery
PROC: 0DTJ4ZZ Resection of Appendix, Percutaneous Endoscopic Approach (ICD-10-PCS; CPT 44970; principal; 2025-02-24 18:30)
DX: K35.32 Acute appendicitis with perforation, localized peritonitis, and gangrene, without abscess (principal); E66.9 Obesity, unspecified; Z68.37 Body mass index [BMI] 37.0-37.9, adult
CPT/HCPCS: 44970; 36415; 74177; 80053; 85025; 88304; 96365; 96367; 96375; 99285; A9270; J0330; J1100; J1885; J2003; J2250; J2405; J2543; J2704; J3010; J7030; J7120; Q9967